=== PATIENT | female | born 1995 | race Caucasian/White ===

== ENCOUNTER 2019-01-19 15:04 | Inpatient (IN) | payer BC ==
[~2019-01-19] VITALS: Ht 152.4 cm; Wt 81.3 kg
--- NOTE | 2019-01-19 15:00 | NUR ---
A 23, admitted to , under the services of MARCI Simmons MD with a diagnosis of RASH. Chief complaint is RASH. Patient arrived via ambulatory from [place]. Monitor applied. Initial assessment completed. Vital signs taken and recorded. MARCI SIMMONS MD notified of admission to the unit. Orders received. See assessment for past medical history, medications and allergies. Patient and/or family oriented to unit. [facility] visitation policy reviewed. Clothing/patient valuable form completed. LUIS ANGEL DICKINSON
[2019-01-19 16:00] VITALS: BP 139/86
[2019-01-19 16:24] LABS: BASO % 0.3 % (0.0-1.0); EOS # 0.1 10*3/uL (0.0-0.4); EOS % 0.7 % (1.0-4.0); HEMATOCRIT 40.4 % (37.0-47.0); HEMOGLOBIN 13.4 g/dl (12.0-16.0); LYMPH # 2.1 10*3/uL (1.3-4.4); LYMPH % 22.1 % (27.0-41.0); MEAN CELL VOLUME 86.5 fl (81.0-99.0); MEAN CORPUSCULAR HGB 28.7 pg (27.0-31.0); MEAN CORPUSCULAR HGB CONC 33.2 g/dl (33.0-37.0); MEAN PLATELET VOLUME 10.1 fl (9.6-12.3); MONO # 0.5 10*3/uL (0.1-1.0); MONO % 5.1 % (3.0-9.0); NEUT # 6.7 10*3/uL (2.3-7.9); NEUT % 71.4 % (47.0-73.0); PLATELET COUNT AUTOMATED 231 10*3/uL (130-400); RED BLOOD COUNT 4.67 10*6/uL (4.10-5.10); RED CELL DISTRI WIDTH 12.5 % (0-14.5); WHITE BLOOD COUNT 9.4 10*3/uL (4.8-10.8)
[2019-01-19 16:45] LABS: ALBUMIN 3.8 gm/dl (3.1-4.5); ALKALINE PHOSPHATASE 73 U/L (45-117); BUN 12 mg/dl (7-24); CHLORIDE 111 mmol/L (98-107); CREATININE 0.65 mg/dL (0.55-1.02); POTASSIUM 3.9 mmol/L (3.5-5.1); SGOT/AST 17 IU/L (3-35); SGPT/ALT 18 U/L (12-78); SODIUM 142 mmol/L (136-145); TOTAL PROTEIN 7.8 gm/dL (6.4-8.2)
[2019-01-19 16:47] LABS: TROPONIN I < 0.015 ng/ml (<0.045)
[2019-01-19 17:23] LABS: BILIRUBIN NEGATIVE (NEGATIVE); BLOOD NEGATIVE (NEGATIVE); CLARITY CLEAR (CLEAR); COLOR YELLOW (YELLOW); GLUCOSE NEGATIVE (NEGATIVE); KETONE NEGATIVE (NEGATIVE); LEUKO ESTERASE NEGATIVE (NEGATIVE); NITRITE NEGATIVE (NEGATIVE); SPECIFIC GRAVITY >= 1.030 (1.005-1.030); UROBILINOGEN 0.2 E.U./dl (0.2-1.0)
--- NOTE | 2019-01-19 17:50 | NUR ---
DR BOYD NOTIFIED OF POSTIVE [place].
[2019-01-19 17:51] LABS: EPITHELIAL CELLS 51-100
[2019-01-19 17:52] LABS: BACTERIA 1+; CALCIUM OXALATE CRYSTALS 0-2; WBC 0-2 wbc/hpf (0-5)
--- NOTE | 2019-01-19 17:53 | NUR ---
CONSULT CALLED TO DR TRIPATHI'S OFFICE.
--- NOTE | 2019-01-19 18:33 | NUR ---
DR TRIPATHI CALLED NOTIFIED OF CONSULT, UPDATED ON STATUS. ORDERS RECEIVED
[2019-01-19 20:00] VITALS: BP 127/68
--- NOTE | 2019-01-19 20:20 | NUR ---
24 HR chart check completed.
--- NOTE | 2019-01-19 21:32 | NUR ---
SITTING IN BED WITH NO ACUTE DISTRESS NOTED. RESPIRATIONS EASY. LUNGS CLEAR. PULSE OX 99% RA. BLOTCHY RASH NOTED TO ENTIRE BODY, ITCHY PER PATIENT - MEDICATED WITH BENADRYL PER ORDER. CALL LIGHT WITHIN REACH. NO VOICED COMPLAINTS
[2019-01-20] VITALS: BP 113/57
--- NOTE | 2019-01-20 | NUR ---
RESTING WITH EYES CLOSED AND NO ACUTE DISTRESS NOTED. RESPIRATIONS EASY. VSS. CALL LIGHT WITHIN REACH
--- NOTE | 2019-01-20 06:00 | NUR ---
SLEPT THROUGHOUT NIGHT WITH NO DISTRESS NOTED. RESPIRATIONS EASY. RASH IMPROVED THIS AM. CALL LIGHT WITHIN REACH. NO VOICED COMPLAINTS THIS SHIFT
[2019-01-20 07:14] LABS: BASO % 0.1 % (0.0-1.0); HEMATOCRIT 40.8 % (37.0-47.0); HEMOGLOBIN 13.3 g/dl (12.0-16.0); LYMPH % 10.4 % (27.0-41.0); MEAN CELL VOLUME 87.2 fl (81.0-99.0); MEAN CORPUSCULAR HGB 28.4 pg (27.0-31.0); MEAN CORPUSCULAR HGB CONC 32.6 g/dl (33.0-37.0); MEAN PLATELET VOLUME 10.2 fl (9.6-12.3); MONO # 0.4 10*3/uL (0.1-1.0); NEUT # 8.4 10*3/uL (2.3-7.9); NEUT % 85.2 % (47.0-73.0); PLATELET COUNT AUTOMATED 242 10*3/uL (130-400); RED BLOOD COUNT 4.68 10*6/uL (4.10-5.10); RED CELL DISTRI WIDTH 12.2 % (0-14.5); WHITE BLOOD COUNT 9.8 10*3/uL (4.8-10.8)
[2019-01-20 07:22] LABS: ALBUMIN 3.8 gm/dl (3.1-4.5); BUN 9 mg/dl (7-24); CHLORIDE 108 mmol/L (98-107); CHOLESTEROL 151 mg/dL (<200); CREATININE 0.64 mg/dL (0.55-1.02); POTASSIUM 3.9 mmol/L (3.5-5.1); SGOT/AST 12 IU/L (3-35); SGPT/ALT 18 U/L (12-78); SODIUM 138 mmol/L (136-145); TRIGLYCERIDES 55 mg/dl (<150); VLDL CHOLESTEROL 11 mg/dL (6-40)
[2019-01-20 07:27] LABS: ALKALINE PHOSPHATASE 74 U/L (45-117); FREE T4 0.81 ng/dl (0.76-1.46); HDL CHOLESTEROL 56 mg/dl (40-60); LDL CHOLESTEROL 84 mg/dL (9-159); PHOSPHOROUS 2.8 mg/dL (2.5-4.9); THYROID STIM HORMONE (HS) 0.307 uIU/ml (0.358-4.75); TOTAL PROTEIN 7.8 gm/dL (6.4-8.2)
[2019-01-20 07:28] LABS: ACT PARTIAL THROMBO TIME 26.4 SECONDS (20.0-32.1)
[2019-01-20 08:00] VITALS: BP 116/72; BP 129/74
[2019-01-20 08:09] LABS: VITAMIN D, 25-HYDROXY 19.5 ng/mL (30-100)
--- NOTE | 2019-01-20 09:00 | NUR ---
[employer] in to talk to patient. Patient states lives at home with her and 2 yo son. There are 20 steps in the home. Physician: Dr. Daniel Matthews [facility]: [facility] Home health services: none Patient's level of ADLs: INDEPENDENT Patient has working utilities: yes DME: none Follow-up physician's appointment after d/c: she prefers to make her own follow up appt after discharge Does patient want to access PORTAL?: no Discharge plan discussed with patient. She lives at home with her and 2 yo son. She is independent in her ADLs and ambulation. Discussed home health care services and she denies any home needs at this time. When medically stable she will be discharged to home. Her will provide transportation on discharge. There is family at the bedside. RENEA CANAS
--- NOTE | 2019-01-20 10:00 | NUR ---
PT RESTING IN BED, NO DISTRESS NOTED. PT STATES RASH HAS MARKEDLY IMPROVED HAS HER ITCHING. DENIES ANY NEEDS AT THIS TIME.
[2019-01-20] MEDS ORDERED: MEDROL DOSEPAK4 MG PO (11:28)
[2019-01-20] MEDS ORDERED: VITAMIN D32000 UNI1 PO (11:28)
--- NOTE | 2019-01-20 12:45 | NUR ---
RECEIVED CALL FROM DR BOYD REQUESTING PT TO BE TRANSFERRED TO DR [facility]. CARE MANAGEMENT TRANSFER ORDER PLACED.
--- NOTE | 2019-01-20 13:40 | NUR ---
Discharge instructions reviewed with patient/family. Patient receptive and verbalizes understanding. Follow-up care arranged. Written instructions given to patient/family. IV site and environmental monitoring specialist removed. LUIS ANGEL DICKINSON
== END 2019-01-20 13:40 | disposition home or self-care (01) | DRG 607 ==
LOC: 4E 15:04
PROVIDERS: Internal Medicine; ADMIT Internal Medicine Nephrology
DX: L50.0 Allergic urticaria (principal); B27.90 Infectious mononucleosis, unspecified without complication; T50.995A Adverse effect of other drugs, medicaments and biological substances, initial encounter; Y92.89 Other specified places as the place of occurrence of the external cause; Z83.79 Family history of other diseases of the digestive system; Z84.1 Family history of disorders of kidney and ureter; Z82.49 Family history of ischemic heart disease and other diseases of the circulatory system; Z83.3 Family history of diabetes mellitus; Z88.8 Allergy status to other drugs, medicaments and biological substances; Z91.040 Latex allergy status; Z79.899 Other long term (current) drug therapy

== ENCOUNTER → 2019-02-09 | Outpatient (CLI) | payer BC ==
[~2019-02-09] MED LIST: MEDROL DOSEPAK4 MG PO; VITAMIN D32000 UNI1 PO
[2019-02-10 08:11] LABS: THYROID PEROXIDASE (TPO) AB 137 IU/mL (0-34)
[2019-02-10 14:11] LABS: THYROGLOBULIN ANTIBODY <1.0 IU/mL (0.0-0.9)
[2019-02-11 04:07] LABS: THYROTROPIN RECEPTOR AB 1.27 IU/L (0.00-1.75)
== END | disposition home or self-care (01) ==
LOC: LAB 13:53
PROVIDERS: Internal Medicine
DX: E05.90 Thyrotoxicosis, unspecified without thyrotoxic crisis or storm (principal)

== ENCOUNTER → 2019-05-23 | Outpatient (CLI) | payer BC | END | disposition home or self-care (01) | LOC: LAB 11:06 | DX: O46.90 Antepartum hemorrhage, unspecified, unspecified trimester (principal); Z3A.00 Weeks of gestation of pregnancy not specified ==

== ENCOUNTER → 2019-09-21 | Outpatient (CLI) | payer BC | END | disposition home or self-care (01) | LOC: COVID19 10:19 | DX: U07.1 COVID-19 (principal); M25.50 Pain in unspecified joint; R50.9 Fever, unspecified; Z78.9 Other specified health status ==

== ENCOUNTER → 2019-12-05 | Outpatient (CLI) | payer BC | END | disposition home or self-care (01) | LOC: US 13:00 | PROVIDERS: ATTEND Nurse Practitioner Family | DX: R10.2 Pelvic and perineal pain (principal); N94.10 Unspecified dyspareunia ==

== ENCOUNTER → 2020-02-29 | Outpatient (CLI) | payer BC | END | disposition home or self-care (01) | LOC: US 14:56 | PROVIDERS: ATTEND Nurse Practitioner Women's Health | DX: Z34.81 Encounter for supervision of other normal pregnancy, first trimester (principal); Z33.1 Pregnant state, incidental; Z3A.12 12 weeks gestation of pregnancy ==

== ENCOUNTER → 2020-05-10 | Outpatient (CLI) | payer BC | END | disposition home or self-care (01) | LOC: US 04-22 13:30 | PROVIDERS: ATTEND Obstetrics & Gynecology | DX: Z34.82 Encounter for supervision of other normal pregnancy, second trimester (principal); Z3A.18 18 weeks gestation of pregnancy ==

== ENCOUNTER → 2020-06-06 | Outpatient (CLI) | payer BC | END | disposition home or self-care (01) | LOC: US 05-28 13:00 | PROVIDERS: ATTEND Obstetrics & Gynecology | DX: Z34.90 Encounter for supervision of normal pregnancy, unspecified, unspecified trimester (principal); Z3A.26 26 weeks gestation of pregnancy ==

== ENCOUNTER 2020-07-01 12:44 | Emergency (ER) | payer BC ==
[2020-07-01 13:31] LABS: BASO % 0.2 % (0.0-1.0); EOS # 0.1 10*3/uL (0.0-0.4); EOS % 0.4 % (1.0-4.0); HEMATOCRIT 33.4 % (37.0-47.0); LYMPH % 16.2 % (27.0-41.0); MEAN CELL VOLUME 89.1 fl (81.0-99.0); MEAN CORPUSCULAR HGB 29.1 pg (27.0-31.0); MEAN CORPUSCULAR HGB CONC 32.6 g/dl (33.0-37.0); MEAN PLATELET VOLUME 10.2 fl (9.6-12.3); MONO # 0.6 10*3/uL (0.1-1.0); MONO % 4.6 % (3.0-9.0); NEUT # 9.8 10*3/uL (2.3-7.9); NEUT % 77.3 % (47.0-73.0); PLATELET COUNT AUTOMATED 177 10*3/uL (130-400); RED BLOOD COUNT 3.75 10*6/uL (4.10-5.10); RED CELL DISTRI WIDTH 14.8 % (0-14.5); WHITE BLOOD COUNT 12.6 10*3/uL (4.8-10.8)
[2020-07-01 13:42] LABS: ACT PARTIAL THROMBO TIME 23.8 SECONDS (20.0-32.1); INTERNATIONAL NORM RATIO 0.9 (2.0-3.5)
[2020-07-01 13:46] LABS: ALBUMIN 2.6 gm/dl (3.1-4.5); ALKALINE PHOSPHATASE 87 U/L (45-117); BUN 6 mg/dl (7-24); CHLORIDE 113 mmol/L (98-107); CREATININE 0.62 mg/dL (0.55-1.02); LIPASE 65 U/L (73-393); POTASSIUM 3.8 mmol/L (3.5-5.1); SGOT/AST 11 IU/L (3-35); SGPT/ALT 16 U/L (12-78); SODIUM 140 mmol/L (136-145); TOTAL PROTEIN 6.7 gm/dL (6.4-8.2)
[2020-07-01 13:49] LABS: TROPONIN I < 0.015 ng/ml (<0.045)
== END 2020-07-01 16:38 | disposition home or self-care (01) ==
LOC: ED 12:44
PROVIDERS: Emergency Medicine
DX: O99.413 Diseases of the circulatory system complicating pregnancy, third trimester (principal); I47.1 Supraventricular tachycardia; Z3A.29 29 weeks gestation of pregnancy; Z88.8 Allergy status to other drugs, medicaments and biological substances; Z79.899 Other long term (current) drug therapy

== ENCOUNTER → 2020-07-03 | Outpatient (CLI) | payer BC | END | disposition home or self-care (01) | LOC: US 10:30 | PROVIDERS: ATTEND Obstetrics & Gynecology | DX: Z34.83 Encounter for supervision of other normal pregnancy, third trimester (principal); Z3A.30 30 weeks gestation of pregnancy ==

== ENCOUNTER → 2020-07-12 | Outpatient (CLI) | payer BC | END | disposition home or self-care (01) | LOC: US 11:16 | PROVIDERS: ATTEND Obstetrics & Gynecology | DX: Z34.83 Encounter for supervision of other normal pregnancy, third trimester (principal); Z3A.31 31 weeks gestation of pregnancy ==

== ENCOUNTER → 2020-07-17 | Outpatient (CLI) | payer BC | END | disposition home or self-care (01) | LOC: US 15:46 | PROVIDERS: ATTEND Nurse Practitioner Women's Health | DX: O36.8390 Maternal care for abnormalities of the fetal heart rate or rhythm, unspecified trimester, not applicable or unspecified (principal); Z3A.32 32 weeks gestation of pregnancy ==

== ENCOUNTER → 2021-03-19 | Outpatient (CLI) | payer BC | END | disposition home or self-care (01) | LOC: CARD 07:26 | PROVIDERS: ATTEND Nurse Practitioner Family | DX: R00.2 Palpitations (principal); Z86.79 Personal history of other diseases of the circulatory system ==

== ENCOUNTER → 2021-04-03 | Outpatient (CLI) | payer BC | END | disposition home or self-care (01) | LOC: COVID19 17:04 | PROVIDERS: ATTEND Podiatrist Foot & Ankle Surgery | DX: Z20.822 Contact with and (suspected) exposure to COVID-19 (principal) ==